=== PATIENT | female | born 1990 | race Caucasian/White ===

== ENCOUNTER → 2017-11-18 | Outpatient (CLI) | payer SELFPAY ==
--- NOTE | 2017-11-18 10:43 | US ---
EXAMINATION TYPE: US OB anatomy transabd DATE OF EXAM: 11/18/2017 COMPARISON: 07/27/2017 HISTORY: 27-year-old female O36.63X0 LARGE FOR DATES TECHNIQUE: Transabdominal (TA) FINDINGS: EXAM MEASUREMENTS: GESTATIONAL AGE / DATING Physician Established: (35 weeks/2 days) EDC: 12/21/2017 Dates by LMP: (35 weeks/2 days) EDC: 12/21/2017 Dates by First Scan: (35 weeks/2 days) EDC: 12/21/2017 Dates by Current Scan for: (36 weeks/2 days) EDC: 12/14/2017, 7 days more prominent than expected from 07/27/2017. SURVEY IUP: Single PLACENTA: Posterior PREVIA: No previa seen with head low in pelvis [place]A: 19.5 cm Normal CERVICAL LENGTH (transabdominal: norm > 3.0cm): 3.7 cm BIOMETRY PRESENTATION: Vertex LIE: Longitudinal BPD: 8.9 cm 36 weeks / 1 day HC: 32.3 cm 36 weeks / 4 days AC: 32.1 cm 36 weeks / 0 days FL: 7.1 cm 36 weeks / 4 days ESTIMATED WEIGHT IN GRAMS: 2884.0 grams ESTIMATED WEIGHT IN LBS/OZ: 6 lbs. 6 oz. WEIGHT PERCENTAGE BASED ON ESTABLISHED DATE: 74.9 % versus 52nd percentile on 07/27/2017. HC/AC: 1.01 Normal FL/AC: 22.2 Normal HEART RATE: 127 bpm RHYTHM: Normal ANATOMY SEEN (within normal limits): Lateral Vent (< 1 cm) 0.7 cm Choroid Plexus (bilateral) Midline Falx Four Chamber Heart Outflow tracts: LVOT/RVOT Stomach Situs Nose / Lips Diaphragm Bladder Three Vessel Cord ANATOMY SEEN AND MAY BE ABNORMAL, WARRANTING FOLLOW-UP: Kidneys: The left kidney shows mild pelvicaliectasis of 8 mm (normal less than 7 mm). Minimal renal p cory enlargement on the right of 5 mm. ANATOMY SUBOPTIMALLY VISUALIZED: due to head low in pelvis and crowding Cisterna Magna (< 1.1 cm) Cerebellum Cavus Septi Pellucidi Cord Insert Arms (bilateral) Legs (bilateral) (long bones currently not seen along their entire length in detail) Longitudinal Spine Transverse Spine EMS INSTRUCTOR NOTES: Single, live IUP,36 weeks/2 days, EDC: 12/14/2017, HR 127bpm. IMPRESSION: 1. Single live intrauterine with estimated gestational age of 35 weeks 2 days by LMP. Curre nt ultrasound biometry is larger but concordant (36 weeks 2 days). 2. This signifies approximately 7 days more growth than expected from 07/27/2017. EFW percentile has increased from the 52nd percentile now to the 75th percentile. 3. We note left-sided RPD (renal pelvis dilatation) of 8 mm which is mildly increased and can be a so ft marker for aneuploidy. Follow-up as clinically indicated. Genetics consultation can be considered.
== END | disposition home or self-care (01) ==
LOC: RADUSWWP 08:19
PROVIDERS: ATTEND Obstetrics & Gynecology
DX: O36.63X0 Maternal care for excessive fetal growth, third trimester, not applicable or unspecified (principal); Z3A.36 36 weeks gestation of pregnancy
CPT/HCPCS: 76811

== ENCOUNTER 2017-12-26 05:44 | Inpatient (IN) | payer OTHER ==
--- NOTE | 2017-12-25 16:54 | P.HPOB ---
History of Present Illness H&P Date: 12/25/17 Chief Complaint: Induction of labor This is a 27-year-old female 1 para 0 with an estimated date of confinement of 12/21/2017, estimated gestational age of 40-5/7 weeks, who presents for induction of labor secondary to postdates. She admits to good movement. She has been feeling some pressure and rare contractions. She has some lower back pain. course has been essentially uncomplicated. Her last ultrasound did show mild left kidney dilation at 8 mm. This will be followed by pediatrics after delivery. labs: Hepatitis B surface antigen-negative Rubella-immune Blood type-O+ Antibody screen-negative RPR-nonreactive HIV-nonreactive Hemoglobin-11.8 Toxoplasma-negative Random glucose-78 1 hour Glucola-11.9 Group B streptococcus-negative Obstetrical history: . Gynecologic history: No history of sexual transmitted diseases. Social history: She is single. She works at a [employer]. Review of Systems Constitutional: Denies chills, Denies fever Eyes: denies blurred vision, denies pain Ears, nose, mouth and throat: Denies headache, Denies sore throat Cardiovascular: Denies chest pain, Denies shortness of breath Respiratory: Denies cough Gastrointestinal: Denies abdominal pain, Denies diarrhea, Denies nausea, Denies vomiting Genitourinary: Reports pelvic pain, Reports Musculoskeletal: Reports low back pain Integumentary: Denies pruritus, Denies rash Neurological: Denies numbness, Denies weakness Psychiatric: Denies anxiety, Denies depression Past Medical History Past Medical History: No Reported History History of Any Multi-Drug Resistant Organisms: None Reported Past Surgical History: No Surgical Hx Reported Past Psychological History: No Psychological Hx Reported Smoking Status: Current some day smoker Past Alcohol Use History: Occasional Past Drug Use History: None Reported Medications and Allergies Home Medications Medication Instructions Recorded Confirmed Type Pax-Leum-Iphff Acid 1 cap PO DAILY 12/25/17 12/25/17 History [-U Capsule (formulary)] Allergies Allergy/AdvReac Type Severity Reaction Status Date / Time No Known Allergies Allergy Verified 09/11/15 04:56 Exam Osteopathic Statement: *. No significant issues noted on an osteopathic structural exam other than those noted in the History and Physical/Consult. HEENT: Within normal limits Heart: Regular rate and rhythm Lungs: Clear to auscultation bilaterally Abdomen: Cervix: 1 cm/80%/-1 station heart tones: 130s by Doppler Extremities: Negative Homans Assessment and Plan (1) Post-term , 40-42 weeks of gestation Status: Acute Code(s): O48.0 - POST-TERM SNOMED Code(s): 19916532 Plan: Proceed with oxytocin induction of labor. Expectant management. Epidural anesthesia if desired.
[2017-12-26] MEDS ORDERED: METHYLERGONOVINE 0.2 MG/ML 1 ML AMP IM PRN (06:01)
[2017-12-26] MEDS ORDERED: LIDOCAINE 1% (PF) 10 MG/ML (30 ML SDV) SQ PRN (06:01)
[2017-12-26] MEDS ORDERED: LIDOCAINE 1% 20 ML VIAL (10MG/ML) FOR IV START INTRADERMA PRN (06:01)
[2017-12-26] MEDS ORDERED: OXYTOCIN 20 UNITS/1000 ML NS 1,000 ML IV SCH (06:01)
[2017-12-26] MEDS ORDERED: TERBUTALINE 1 MG/ML VIAL SQ PRN (06:01)
[2017-12-26] MEDS ORDERED: CARBOPROST TROMETHAMINE 250 MCG/ML 1 ML AMP IM PRN (06:01)
[2017-12-26] MEDS ORDERED: OXYTOCIN 10 UNIT/ML 1 ML VIAL IM PRN (06:01)
[2017-12-26] MEDS: LACTATED RINGERS 1,000 ML IV SCH ×4 (06:13→22:43)
[2017-12-26 06:19] LABS: Basophils % (A) 0 %; Eosinophils # (A) 0.2 k/uL (0-0.7); Eosinophils % (A) 2 %; HCT 36.1 % (34.0-46.0); HGB 12.7 gm/dL (11.4-16.0); Lymphocytes # (A) 1.8 k/uL (1.0-4.8); Lymphocytes % (A) 19 %; MCH 31.2 pg (25.0-35.0); MCHC 35.2 g/dL (31.0-37.0); MCV 88.7 fL (80.0-100.0); Mean Platelet Volume 8.2; Monocytes # (A) 0.6 k/uL (0-1.0); Monocytes % (A) 7 %; Neutrophils # (A) 6.5 k/uL (1.3-7.7); Neutrophils % (A) 70 %; Platelet Count 233 k/uL (150-450); RBC 4.06 m/uL (3.80-5.40); RDW 12.6 % (11.5-15.5); WBC 9.3 k/uL (3.8-10.6)
[2017-12-26 06:58] VITALS: BMI 35.3
[2017-12-26] MEDS: BUTORPHANOL 1 MG/ML 1 ML VIAL IV PRN ×2 (13:29→15:52)
[2017-12-26] MEDS ORDERED: BUPIVACAINE (PF) 0.25% 30 ML VIAL ONE (16:35)
[2017-12-26] MEDS ORDERED: fentaNYL (PF) 50 MCG/ML 5 ML AMP ONE (16:35)
[2017-12-26] MEDS ORDERED: SODIUM CHLORIDE 0.9% 100 ML BAG ONE (16:35)
--- NOTE | 2017-12-27 01:32 | P.PROBDLV ---
Vaginal Delivery Note - . Vaginal Delivery Note: The patient progressed to complete dilation after oxytocin induction of labor and artificial rupture of membranes with clear fluid noted. She did receive an epidural anesthetic at approximate 3-1/2 cm. Once reaching complete dilation, she began pushing. She pushed for almost 2 hours and was beginning to have maternal exhaustion. At this point the caput had delivered but there was a tight band palpated in the perineum. In addition heart tones were dropping during pushing. At this point it was felt necessary to cut an episiotomy. A midline episiotomy was cut after anesthetizing with 1% lidocaine. With one further push, the 's head then did deliver across the perineum followed by the anterior shoulder. Infant delivered in a right occiput anterior position with a nuchal posterior hand noted with delivery. Nose and mouth were bulb suctioned. With one further push, the remainder the infant easily delivered and was placed on mother's abdomen. A viable female was noted with scores of 7 at 1 minute and 9 at 5 minutes and infant weight of 8 lbs. 12 oz. Placenta delivered shortly thereafter, intact, with a three-vessel cord. Uterus contracted fairly well after oxytocin was given and uterine massage was carried out. Inspection of the perineum revealed a midline episiotomy with no further extension. This area was anesthetized with 1% lidocaine and then sutured with 3-0 and 2-0 Vicryl suture in the usual multilayer fashion. Estimated blood loss is approximately 200 mL's. Both mother and are in stable condition.
[2017-12-27] MEDS ORDERED: diphenhydrAMINE 50 MG/ML 1 ML VIAL IVP PRN ×2 (01:45)
[2017-12-27] MEDS ORDERED: HYDROCORTISONE 2.5% RECTAL CREAM 30 GM TUBE RECTAL PRN (01:45)
[2017-12-27] MEDS ORDERED: ZOLPIDEM 5 MG TAB PO PRN (01:45)
[2017-12-27] MEDS ORDERED: ACETAMINOPHEN TAB 325 MG TAB PO PRN (01:45)
[2017-12-27] MEDS ORDERED: OXYTOCIN 20 UNITS/1000 ML NS 1,000 ML IV SCH (01:45)
[2017-12-27] MEDS ORDERED: diphenhydrAMINE 50 MG CAP PO PRN (01:45)
[2017-12-27] MEDS ORDERED: diphenhydrAMINE 25 MG CAP PO PRN (01:45)
[2017-12-27] MEDS ORDERED: BENZOCAINE/MENTHOL SPRAY 1 GM/SPRAY AEROSOL TOPICAL PRN (01:45)
[2017-12-27] MEDS ORDERED: LANOLIN CREAM 5 GM TUBE TOPICAL PRN (01:45)
[2017-12-27] MEDS ORDERED: SIMETHICONE 80 MG CHEWABLE PO PRN (01:45)
[2017-12-27] MEDS ORDERED: WITCH HAZEL 1 EACH MED..PAD TOPICAL PRN (01:45)
[2017-12-27] MEDS: IBUPROFEN 600 MG TAB PO PRN ×3 (01:50→16:52)
[2017-12-27 08:31] LABS: Basophils % (A) 0 %; Eosinophils % (A) 0 %; HCT 29.9 % (34.0-46.0); HGB 10.4 gm/dL (11.4-16.0); Lymphocytes # (A) 1.1 k/uL (1.0-4.8); Lymphocytes % (A) 7 %; MCH 31.1 pg (25.0-35.0); MCHC 34.9 g/dL (31.0-37.0); Mean Platelet Volume 8.7; Monocytes # (A) 0.5 k/uL (0-1.0); Monocytes % (A) 3 %; Neutrophils # (A) 13.7 k/uL (1.3-7.7); Neutrophils % (A) 89 %; Platelet Count 213 k/uL (150-450); RBC 3.35 m/uL (3.80-5.40); RDW 12.8 % (11.5-15.5); WBC 15.5 k/uL (3.8-10.6)
[2017-12-27] MEDS: SENNOSIDES-DOCUSATE SODIUM 1 EACH TAB PO SCH ×2 (09:04→22:07)
[2017-12-28 01:34] VITALS: BP 118/59
[2017-12-28] MEDS: SENNOSIDES-DOCUSATE SODIUM 1 EACH TAB PO SCH (08:00)
--- NOTE | 2017-12-28 08:26 | P.DS ---
Providers Date of admission: 12/26/17 05:44 Expected date of discharge: 12/28/17 Attending physician: Arianna Santillan Primary care physician: Stated None - Discharge Diagnosis(es) (1) Post-term , 40-42 weeks of gestation Current Visit: Yes Status: Acute Hospital Course: This is a 27-year-old female 1 para 0 at and 5/7 weeks who presented for induction of labor. She underwent oxytocin induction labor and delivered vaginally a viable female infant on 12/27/2017 with scores of 7 at 1 minute and 9 at 5 minutes and weight of 8 lbs. 12 oz. Her course was essentially uncomplicated. She is bottle feeding. Lochia is decreasing. Pain is well-controlled. Vital signs are stable. Abdomen is soft with fundus firm and nontender. Extremities show negative Homans. Impression is status post vaginal delivery day #1. Plan is to discharge home today. Routine instructions are given. She is advised to call the office if she has any further questions or concerns prior to her appointment time. Procedures: Oxytocin induction of labor Spontaneous vaginal delivery of a viable female infant on 12/27/2017 Patient Condition at Discharge: Stable Plan - Discharge Summary New Discharge Prescriptions: Continue Ocx-Wcgz-[id number] Acid [-U Capsule (formulary)] 1 cap PO DAILY Discharge Medication List Gzx-[id number]-[id number] Acid [-U Capsule (formulary)] 1 cap PO DAILY [History] Follow up Appointment(s)/Referral(s): Arianna Santillan DO [Doctor of Osteopathic Medicine] - 6 Weeks Activity/Diet/Wound Care/Special Instructions: Instructions 1. Do not begin any exercise program for 3 weeks. 2. Do not resume sexual relations for 3 weeks or longer if uncomfortable. 3. You may take tub baths or showers at any time. 4. You may use tampons if desired after 3 weeks. 5. Keep the area of episiotomy (stitches) clean and dry. 6. If you are not nursing, wear a good fitting, supportive bra during the day and limit fluid intake for at least 1 week to prevent breast engorgement. 7. Call the office, [phone], within the next week to make appointment for your 6 week checkup if it has not already been made. 8. Report any of the following occurrences to the doctor promptly: a. Heavy, excessive bleeding b. Chills, fever c. Burning or frequency of urination d. Pain or redness and breasts if nursing e. Increasing pain or swelling in episiotomy (stitches). In addition to the above instructions, the following additional should be followed: 1. No heavy lifting or straining (exercising) until after 6 week checkup. 2. Keep abdominal incision clean and dry: You may wear a dressing if more comfortable. 3. Make office appointment for 10 days after going home or as instructed by her doctor. Discharge Disposition: HOME SELF-CARE
[2017-12-28] MEDS: IBUPROFEN 600 MG TAB PO PRN (08:52)
[2017-12-28 11:10] VITALS: RESP 20
[2017-12-28 11:11] VITALS: PULSE 86; TEMP 98.7
== END 2017-12-28 10:45 | disposition home or self-care (01) | DRG 775 ==
LOC: 4FBP 05:44
PROVIDERS: ADMIT Obstetrics & Gynecology; ATTEND Obstetrics & Gynecology
PROC: 10E0XZZ Delivery of Products of Conception, External Approach (ICD-10-PCS; principal; 2017-12-28)
PROC: 3E033VJ Introduction of Other Hormone into Peripheral Vein, Percutaneous Approach (ICD-10-PCS; 2017-12-28)
PROC: 0W8NXZZ Division of Female Perineum, External Approach (ICD-10-PCS; 2017-12-28)
PROC: 10907ZC Drainage of Amniotic Fluid, Therapeutic from Products of Conception, Via Natural or Artificial Opening (ICD-10-PCS; 2017-12-28)
PROC: 00HU33Z Insertion of Infusion Device into Spinal Canal, Percutaneous Approach (ICD-10-PCS; 2017-12-28)
PROC: 3E0R3BZ Introduction of Anesthetic Agent into Spinal Canal, Percutaneous Approach (ICD-10-PCS; 2017-12-28)
DX: O48.0 Post-term pregnancy (principal); O99.334 Smoking (tobacco) complicating childbirth; O99.89 Other specified diseases and conditions complicating pregnancy, childbirth and the puerperium; O75.81 Maternal exhaustion complicating labor and delivery; N28.89 Other specified disorders of kidney and ureter; F17.200 Nicotine dependence, unspecified, uncomplicated; Z37.0 Single live birth; Z3A.42 42 weeks gestation of pregnancy
CPT/HCPCS: 85025; 88307